=== PATIENT | female | born 1950 | race Caucasian/White ===

== ENCOUNTER 2017-04-02 12:02 | Emergency (ER) | payer MEDICARE, BC ==
[~2017-04-02] VITALS: Ht 149.9 cm; Wt 81.0 kg
[2017-04-02 12:04] VITALS: Ht 149.9 cm; Wt 81.0 kg
[2017-04-02] MEDS ORDERED: MECLIZINE 12.5 MG TAB PO ONE (14:00)
--- NOTE | 2017-04-02 14:19 | ERD ---
ER Documentation Chief Complaint Chief Complaint Dizziness x last night, denies fever or pain (RUMA SNELL PA-C) HPI This is a 6-year-old female who presents to the emergency department today complaining of dizziness for the past 4 days. States she has a slight headache. Denies any vomiting, diarrhea, dysuria, fevers or chills. States that several years ago she used to take many different medications and was taking multiple pills multiple times a day and she decided to "quit cold turkey ". States that she is to have low blood pressure but not high blood pressure. States her left ear feels "muffled". Denies that the room is spinning. Does improve slightly when she lays down. (RUMA SNELL PA-C) ROS All systems reviewed and are negative except as per history of present illness. (RUMA SNELL PA-C) Medications Home Meds Active Scripts Hydrochlorothiazide* (Hydrochlorothiazide*) 25 Mg Tab, 25 MG PO DAILY, #30 TAB Prov:RUMA SNELL PA-C 04/02/17 Cetirizine Hcl* (Zyrtec*) 10 Mg Capsule, 10 MG PO DAILY, #14 TAB.CHEW Prov:RUMA SNELL PA-C 04/02/17 Allergies Allergies: Coded Allergies: Penicillins (Verified Allergy, Severe, 04/02/17) PMhx/Soc Medical and Surgical Hx: pt denies Medical Hx, pt denies Surgical Hx Hx Alcohol Use: No Hx Substance Use: No Hx Tobacco Use: No Smoking Status: Never smoker (RUMA SNELL PA-C) Physical Exam Vitals Vital Signs Date Time Temp Pulse Resp B/P Pulse Ox O2 Delivery O2 Flow Rate FiO2 04/02/17 14:57 65 177/72 04/02/17 12:04 99.0 67 18 182/88 98 (AYSE GARCIA MD) Physical Exam Const: talkative, NAD Head: Atraumatic Eyes: Normal Conjunctiva. PERRLA EOM intact. ENT: Ears TMs normal. No evidence of cerumen impaction nose no drainage. Throat no erythema no exudate no vesicles Neck: Full range of motion..~ No meningismus. Resp: Clear to auscultation bilaterally Cardio: Regular rate and rhythm, no murmurs Abd: Soft, non tender, non distended. Normal bowel sounds Skin: No petechiae or rashes Back: No midline or flank tenderness Ext: No cyanosis, or edema Neur: Awake and alert Psych: Normal Mood and Affect (RUMA SNELL PA-C) Result Diagram: 04/02/17 1415 04/02/17 1415 Results 24 hrs Laboratory Tests Test 04/02/17 14:15 White Blood Count 9.210^3/ul Red Blood Count 4.7110^6/ul Hemoglobin 14.0g/dl Hematocrit 43.5% Mean Corpuscular Volume 92.4fl Mean Corpuscular Hemoglobin 29.7pg Mean Corpuscular Hemoglobin Concent 32.2g/dl Red Cell Distribution Width 13.3% Platelet Count 88283^3/UL Mean Platelet Volume 10.9fl Neutrophils % 60.4% Lymphocytes % 28.5% Monocytes % 8.5% Eosinophils % 1.9% Basophils % 0.5% Nucleated Red Blood Cells % 0.0/100WBC Neutrophils # 5.510^3/ul Lymphocytes # 2.610^3/ul Monocytes # 0.810^3/ul Eosinophils # 0.210^3/ul Basophils # 0.110^3/ul Nucleated Red Blood Cells # 0.010^3/ul Urine Color YELLOW Urine Clarity CLEAR Urine pH 5.0 Urine Specific [place] 1.024 Urine Ketones NEGATIVEmg/dL Urine Nitrite NEGATIVEmg/dL Urine Bilirubin NEGATIVEmg/dL Urine Urobilinogen NEGATIVEmg/dL Urine Leukocyte Esterase TRACELeu/ul Urine Microscopic RBC 3/HPF Urine Microscopic WBC 2/HPF Urine Mucus MODERATE/HPF Urine Hemoglobin 2+mg/dL Urine Glucose NEGATIVEmg/dL Urine Total Protein NEGATIVEmg/dl Sodium Level 143mmol/L Potassium Level 3.8mmol/L Chloride Level 104mmol/L Carbon Dioxide Level 28mmol/L Anion Gap 15 Blood Urea Nitrogen 15mg/dl Creatinine 0.68mg/dl Glucose Level 98mg/dl Calcium Level 9.2mg/dl Total Bilirubin 0.2mg/dl Direct Bilirubin 0.00mg/dl Indirect Bilirubin 0.2mg/dl Aspartate Amino Transf (AST/SGOT) 22IU/L Alanine Aminotransferase (ALT/SGPT) 31IU/L Alkaline Phosphatase 112IU/L Total Protein 7.2g/dl Albumin 3.9g/dl Globulin 3.30g/dl Albumin/Globulin Ratio 1.18 Current Medications Medications (Trade) Dose Ordered Sig/Lanre Route PRN Reason Start Time Stop Time Status Last Admin Dose Admin Meclizine HCl (Antivert) 25 mg ONCE ONCE PO 04/02/17 14:00 04/02/17 14:01 DC 04/02/17 13:59 (AYSE GARCIA MD) Results 24 hrs DIAGNOSTIC IMAGING REPORT Patient: DYLAN FATIMA : 1950 Age: 66 Sex: F MR #: [id number] DOS: 04/02/17 0000 Ordering MD: RUMA SNELL PA-C Location: [facility] Room/Bed: PROCEDURE: CT Brain without contrast. CLINICAL INDICATION: Dizziness. TECHNIQUE: A CT of the brain without contrast was performed utilizing axial sections from the skull base through the vertex. One or more the following does reduction techniques were utilized: Automated exposure control, adjustment of the mA/ or kV according to patient's size, or use of iterative reconstruction technique. Total exam CTDIvol is 44.33 MGy and DLP is 720.23 mGy-cm. DICOM images are available. COMPARISON: None available. FINDINGS: The ventricles and sulci are mildly prominent indicative of volume loss. There is no intracranial hemorrhage, mass effect or midline shift. No abnormal intra- axial or extra-axial fluid collections are seen. The young/white matter differentiation is well preserved. There are mild foci of hypoattenuation in the white matter, which are nonspecific in etiology but likely reflect chronic small vessel ischemic changes. There are mild intracranial vascular calcifications consistent with atherosclerosis. The visualized paranasal sinuses are essentially clear. IMPRESSION: 1. No acute intracranial hemorrhage, transcortical infarction or mass effect. 2. Mild intracranial atherosclerosis and chronic small vessel ischemic changes. 3. Mild generalized cerebral volume loss. RPTAT: QQ .Lilliana Connell MD, MD Date Time Electronically viewed and signed by .Lilliana Connell MD, on 04/02/2017 14: 41 .N/ CC: RUMA SNELL PA-C (RUMA SNELL PA-C) Procedures/MDM This is a 66-year-old female who presents emergency department today complaining of dizziness for the past 4 days. Patient's physical exam is essentially benign however it appears that her the patient she used to take many different medications for many different problems and complaints. She was unable to tell me specifically what these complaints were or what the problems were other than she was told that she is to have low blood pressure not high blood pressure. Patient is very talkative in the exam room. She is here with her [employer] worker. She does ambulate with a walker and states that he used it for years but is unsure why she started using it. His age and complaints I did obtain laboratory workup as well as imaging Laboratory workup shows no elevated white blood cell count. She is not anemic. Platelets are within normal limits. Electrolytes are within normal limits. Glucose is within normal limits. Liver enzymes are within normal limits. UA is negative for infection. Head CT noncontrast shows no acute intracranial hemorrhage, transcortical infarction or mass-effect. There is mild intracranial atherosclerosis and chronic small vessel ischemic changes. There is mild generalized cerebral volume loss. EKG read and interpreted by Dr. Garcia. Rate [address] elevation no QT prolongation. Low suspicion for acute FL, PE, pericarditis. Patient is afebrile and otherwise well-appearing. I do not feel it requires further workup or imaging at this time. Patient has dizziness of uncertain etiology. Low suspicion for sepsis, severe acute bacterial infection, electrolyte abnormality. All of her studies were within normal limits. Patient was given meclizine here in the emergency department. Patient did mention that she feels like her left ear is clogged. There is no evidence of cerumen impaction and she may have some fluid behind her ear likely eustachian tube dysfunction. I explained her that this could be causing some of her dizziness. She will given a prescription for Zyrtec. Patient was also given referral for ENT and instructed to call her primary care doctor. Patient had endorsed that she is starting to get dementia and is forgetting everything and has asked me to write it down. This is all been done for the patient. Patient also has a heel seat flap stapler here to help her with some of her activities of daily living. Blood pressure was elevated at 182/88. I did repeat the patient's blood pressure and it was 172/77. Because the patient with Dr. Garcia and she will be given a prescription for hydrochlorothiazide. I do not feel her blood pressure is the cause of her dizziness. Patient was given a prescription for Zyrtec and hydrochlorothiazide. At this time the patient is stable for discharge and outpatient management. Patient should follow up with their PCP in the next 1-2 days. They may return to the emergency department sooner for any persistent or worsening of symptoms. Patient understood and agreed with the plan. (RUMA SNELL PA-C) note- [id number]old female presents with nonspecific intermittent dizziness over the last few days. She also has a sensation of decreased hearing or congestion in her left ear. She denies any chest pain, shortness of breath, vomiting, additional symptoms. Patient has history of possible hypertension and needs to take medication but does not currently take medication and is unable to give a specific reason why. She states that she does not like her primary doctor and does not currently received primary care. Objective- HEENT normal. TMs grossly normal possibly slight decreased light reflex. Heart regular rate and rhythm without murmurs and lungs clear to auscultation. Patient walks with a walker without significant appreciable focal neurologic deficits. EKG shows rate of 60, normal sinus rhythm no ST changes, normal axis no significant arrhythmias. CT brain normal. Urine shows no significant findings of infection. CBC shows no acute abnormalities and CT shows no acute abnormalities. MDM, assessment and plan-patient has nonspecific dizziness of uncertain etiology and left ear congestion. She does have elevated blood pressure. We will recommend restarting hydrochlorothiazide but patient appears to be in need of primary care and will be referred for primary care follow-up. Patient will be given a nonsedating antihistamine for possible eustachian this dysfunction as well. The patient was stable with no new complaints during the ER course. Clinically, there is no current evidence to suggest meningitis, intracranial bleeding, mass-effect, neurologic deficit, sepsis, acute abdomen, pneumonia, acute coronary syndrome, pulmonary embolism, or any other emergent condition appearing to require further evaluation or hospitalization. The patient should certainly return for any new or worsening symptoms per the aftercare instructions. They should otherwise follow-up with her primary care doctor for reevaluation this week. (AYSE GARCIA MD) Departure Diagnosis: Primary Impression: Dizziness Additional Impression: Elevated blood pressure reading Condition: RUMA Nair PA-C Apr 02, 2017 14:19 AYSE GARCIA MD Apr 02, 2017 15:04
[2017-04-02 14:24] LABS: BASOPHIL # 0.1 10^3/ul (0.0-0.1); BASOPHILS % 0.5 % (0.0-2.0); EOSINOPHILS # 0.2 10^3/ul (0.0-0.5); EOSINOPHILS % 1.9 % (0.0-7.0); HEMATOCRIT 43.5 % (37.0-47.0); LYMPHOCYTES # 2.6 10^3/ul (0.8-2.9); LYMPHOCYTES % 28.5 % (15.0-51.0); MEAN CORPUSCULAR HEMOGLOBIN 29.7 pg (29.0-33.0); MEAN CORPUSCULAR HGB CONC 32.2 g/dl (32.0-37.0); MEAN CORPUSCULAR VOLUME 92.4 fl (82.0-101.0); MEAN PLATELET VOLUME 10.9 fl (7.4-10.4); MONOCYTE # 0.8 10^3/ul (0.3-0.9); MONOCYTES % 8.5 % (0.0-11.0); NEUTROPHIL # 5.5 10^3/ul (1.6-7.5); NEUTROPHILS % 60.4 % (39.0-77.0); PLATELET COUNT 225 10^3/UL (140-415); RED BLOOD COUNT 4.71 10^6/ul (4.20-5.40); RED CELL DISTRIBUTION WIDTH 13.3 % (11.5-14.5); WHITE BLOOD COUNT 9.2 10^3/ul (4.8-10.8)
[2017-04-02 14:32] LABS: ADD UMIC YES; UR ASCORBIC ACID NEGATIVE (NEGATIVE); UR BILIRUBIN (Dip) NEGATIVE (NEGATIVE); UR BLOOD (Dip) 2+ mg/dL (NEGATIVE); UR CLARITY CLEAR (CLEAR); UR COLOR YELLOW (YELLOW); UR GLUCOSE (Dip) NEGATIVE (NEGATIVE); UR KETONES (Dip) NEGATIVE (NEGATIVE); UR LEUKOCYTE ESTERASE (Dip) TRACE Leu/ul (NEGATIVE); UR MUCUS MODERATE /HPF (NONE SEEN); UR NITRITE (Dip) NEGATIVE (NEGATIVE); UR RBC 3 /HPF (0-5); UR SPECIFIC GRAVITY (Dip) 1.024 (1.003-1.030); UR TOTAL PROTEIN (Dip) NEGATIVE (NEGATIVE); UR UROBILINOGEN (Dip) NEGATIVE (NEGATIVE)
--- NOTE | 2017-04-02 14:41 | RADRPT ---
PROCEDURE: CT Brain without contrast. CLINICAL INDICATION: Dizziness. TECHNIQUE: A CT of the brain without contrast was performed utilizing axial sections from the skul l base through the vertex. One or more the following does reduction techniques were utilized: Automa lester exposure control, adjustment of the mA/ or kV according to patient's size, or use of iterative r econstruction technique. Total exam CTDIvol is 44.33 MGy and DLP is 720.23 mGy-cm. DICOM images are available. COMPARISON: None available. FINDINGS: The ventricles and sulci are mildly prominent indicative of volume loss. There is no intracranial h emorrhage, mass effect or midline shift. No abnormal intra-axial or extra-axial fluid collections a re seen. The young/white matter differentiation is well preserved. There are mild foci of hypoattenuation in the white matter, which are nonspecific in etiology but li harry reflect chronic small vessel ischemic changes. There are mild intracranial vascular calcificati ons consistent with atherosclerosis. The visualized paranasal sinuses are essentially clear. IMPRESSION: 1. No acute intracranial hemorrhage, transcortical infarction or mass effect. 2. Mild intracranial atherosclerosis and chronic small vessel ischemic changes. 3. Mild generalized cerebral volume loss. RPTAT: QQ .Lilliana Connell MD, Date Time Electronically viewed and signed by .Lilliana Connell MD, MD on 04/02/2017 14:41 .N/
[2017-04-02 14:46] LABS: ALBUMIN 3.9 g/dl (3.3-4.9); ALBUMIN/GLOBULIN RATIO 1.18; BILIRUBIN,INDIRECT 0.2 mg/dl (0-1.1); BILIRUBIN,TOTAL 0.2 mg/dl (0.2-1.3); CALCIUM 9.2 mg/dl (8.4-10.2); CREATININE 0.68 mg/dl (0.44-1.00); POTASSIUM 3.8 mmol/L (3.5-5.1); TOTAL PROTEIN 7.2 g/dl (6.1-8.1)
[2017-04-02 14:57] VITALS: BP 177/72; PULSE 65
[2017-04-02] MEDS ORDERED: HYDR25TA6 PO (15:06)
[2017-04-02] MEDS ORDERED: CETI10CA PO (15:06)
== END 2017-04-02 15:38 | disposition home or self-care (01) ==
LOC: FTE 12:02
DX: R42 Dizziness and giddiness (principal); R03.0 Elevated blood-pressure reading, without diagnosis of hypertension
CPT/HCPCS: 70450; 80053; 81001; 85025; 93005